=== PATIENT | female | born 1970 | race Caucasian/White ===

== ENCOUNTER 2024-07-01 09:46 | Outpatient (CLI) | payer OTHER, SELFPAY ==
--- NOTE | ~2024-07-01 | US_ITS ---
EXAMINATION: US thyroid DATE: 07/01/2024 10:14 INDICATION: Nontoxic goiter TECHNIQUE: Multiple ultrasound images of the thyroid were obtained. COMPARISON: None. FINDINGS: The right thyroid lobe measures 6.2 x 1.9 x 1.7 cm. The left thyroid lobe measures 3.9 x 1.4 x 1.2 c m. A millimeter wide than tall very hypoechoic nodule with smooth margins and without echogenic foci at the inferior right thyroid lobe (TI-RADS 4, moderately suspicious , FNA if >=1.5 cm, annual follo wup is >=1 cm). There is normal echotexture, echogenicity and vascular flow throughout the remainder of the thyroid gland. IMPRESSION: 1. 8 mm TI-RADS 4 right thyroid nodule which remains below size criteria for either biopsy or follow- up. Reviewed, dictated and finalized at location B. [employer] IMPRESSION: 1. 8 mm TI-RADS 4 right thyroid nodule which remains below size criteria for ei ther biopsy or follow-up.
== END 2024-07-01 09:47 | disposition home or self-care (01) ==
LOC: MICIMG 09:47
PROVIDERS: PCP Internal Medicine Endocrinology, Diabetes & Metabolism; Visit Provider Internal Medicine Endocrinology, Diabetes & Metabolism
DX: E11.65 Type 2 diabetes mellitus with hyperglycemia (principal); E04.1 Nontoxic single thyroid nodule
CPT/HCPCS: 76536